=== PATIENT | male | born 1955 | race Caucasian/White ===

== ENCOUNTER 2018-12-17 02:54 | Inpatient (IN) | payer MEDICARE, BC ==
[2018-12-17] MEDS: METHYLPREDNISOLONE 125 MG INJ IV ×2 (03:19→22:53)
[2018-12-17] MEDS: IPRATROPIUM (NEB) 0.5 MG/2.5 ML AMP INH (03:38)
[2018-12-17] MEDS: ALBUTEROL 0.5% (NEB) 2.5 MG/0.5 ML AMP INH (03:38)
[2018-12-17 03:40] LABS: ADD MAN DIFF? NO
[2018-12-17 03:44] LABS: AADO2 Arterial 56.9 mmHg (7.0-24.0); Allen Test ACCEPTAB; Arterial Base Excess 5.6 mmol/L (-3.0-3); Arterial Blood Gas Oxygen Sat 99.1 mmHG (95.0-98.0); Arterial COHb 1.8 % (0.0-3.0); Arterial HCO3 32.4 mmol/L (22.0-26.0); Arterial MetHb 0.3 % (0.0-1.5); Arterial pCO2 56.9 mmhg (35-45); Blood Gas IEPAP 15/5; MODE MASK - BIPAP; Site Right Radial
[2018-12-17 04:01] LABS: ALANINE AMINOTRANSFERASE 20 IU/L (13-69); ALBUMIN 4.3 g/dl (3.3-4.9); ALBUMIN/GLOBULIN RATIO 1.59; ALKALINE PHOSPHATASE 55 IU/L (42-121); ANION GAP 8 (5-13); ASPARTATE AMINO TRANSFERASE 20 IU/L (15-46); BILIRUBIN,INDIRECT 0.3 mg/dl (0-1.1); BILIRUBIN,TOTAL 0.3 mg/dl (0.2-1.3); BLOOD UREA NITROGEN 21 mg/dl (7-20); CALCIUM 9.2 mg/dl (8.4-10.2); CARBON DIOXIDE 32 mmol/L (21-31); CHLORIDE 105 mmol/L (97-110); CREATININE 0.92 mg/dl (0.61-1.24); Estimated GFR > 60 mL/min (>60); GLUCOSE 102 mg/dl (70-220); INR 0.94; POTASSIUM 3.7 mmol/L (3.5-5.1); PROTIME 12.7 Sec (11.9-14.9); SODIUM 145 mmol/L (135-144)
[2018-12-17 04:02] LABS: PARTIAL THROMBOPLASTIN TIME 25.3 Sec (23.0-35.0)
[2018-12-17 04:09] LABS: B-TYPE NATRIURETIC PEPTIDE 102 PG/ML (0-125)
[2018-12-17 04:12] LABS: WHITE BLOOD COUNT 14.7 10^3/ul (4.8-10.8)
[2018-12-17 04:12] LABS: BASOPHIL # 0.1 10^3/ul (0.0-0.1); BASOPHILS % 0.6 % (0.0-2.0); EOSINOPHILS # 0.1 10^3/ul (0.0-0.5); EOSINOPHILS % 0.3 % (0.0-7.0); HEMATOCRIT 43.2 % (42.0-52.0); HEMOGLOBIN 13.6 g/dl (14.0-18.0); LYMPHOCYTES # 2.8 10^3/ul (0.8-2.9); LYMPHOCYTES % 18.7 % (15.0-51.0); MEAN CORPUSCULAR HEMOGLOBIN 30.3 pg (29.0-33.0); MEAN CORPUSCULAR HGB CONC 31.5 g/dl (32.0-37.0); MEAN CORPUSCULAR VOLUME 96.2 fl (82.0-101.0); MEAN PLATELET VOLUME 10.3 fl (7.4-10.4); MONOCYTE # 1.2 10^3/ul (0.3-0.9); MONOCYTES % 7.9 % (0.0-11.0); NEUTROPHIL # 10.4 10^3/ul (1.6-7.5); NEUTROPHILS % 70.8 % (39.0-77.0); PLATELET COUNT 197 10^3/UL (140-415); RED BLOOD COUNT 4.49 10^6/ul (4.70-6.10); RED CELL DISTRIBUTION WIDTH 13.2 % (11.5-14.5)
[2018-12-17 04:14] LABS: TROPONIN-I < 0.012 ng/ml (0.000-0.120)
[2018-12-17 06:16] LABS: LACTIC ACID 1.6 mmol/L (0.5-2.0)
[2018-12-17 07:39] LABS: LACTIC ACID 1.7 mmol/L (0.5-2.0)
[2018-12-17] MEDS ORDERED: NACL 0.9% 3 ML SYG IV (16:00)
[2018-12-17] MEDS ORDERED: ALBUTEROL/IPRATROPIUM (NEB) 3 ML AMP HHN (16:00)
[2018-12-17] MEDS ORDERED: DOCUSATE SODIUM 100 MG CAP PO (16:00)
[2018-12-17] MEDS ORDERED: BISACODYL (EC) 5 MG TAB PO (16:00)
[2018-12-17] MEDS: ENOXAPARIN 30 MG/0.3 ML SYG SC (18:08)
[2018-12-17] MEDS: ALBUTEROL/IPRATROPIUM (NEB) 3 ML AMP HHN (20:17)
[2018-12-17] MEDS: DOCUSATE SODIUM 100 MG CAP PO (20:43)
[2018-12-17] MEDS: BENAZEPRIL 20 MG TAB PO (20:43)
[2018-12-17] MEDS: DILTIAZEM (CD) 120 MG CAP PO (20:44)
[2018-12-17] MEDS: ALPRAZOLAM 1 MG TAB PO (22:54)
[2018-12-18] MEDS: ALBUTEROL/IPRATROPIUM (NEB) 3 ML AMP HHN ×4 (02:21→21:14)
[2018-12-18] MEDS: ALPRAZOLAM 1 MG TAB PO ×2 (05:08→17:59)
[2018-12-18] MEDS: PANTOPRAZOLE (EC) 40 MG TAB PO (05:08)
[2018-12-18] MEDS: HYDROCODONE/APAP (5/325) TAB PO (05:09)
[2018-12-18] MEDS: METHYLPREDNISOLONE 125 MG INJ IV ×3 (05:09→20:36)
[2018-12-18 05:19] LABS: ADD MAN DIFF? NO
[2018-12-18 05:30] LABS: BASOPHILS % 0.2 % (0.0-2.0); HEMATOCRIT 37.8 % (42.0-52.0); HEMOGLOBIN 12.5 g/dl (14.0-18.0); LYMPHOCYTES # 0.8 10^3/ul (0.8-2.9); LYMPHOCYTES % 6.6 % (15.0-51.0); MEAN CORPUSCULAR HEMOGLOBIN 31.2 pg (29.0-33.0); MEAN CORPUSCULAR HGB CONC 33.1 g/dl (32.0-37.0); MEAN CORPUSCULAR VOLUME 94.3 fl (82.0-101.0); MEAN PLATELET VOLUME 10.3 fl (7.4-10.4); MONOCYTE # 0.2 10^3/ul (0.3-0.9); MONOCYTES % 1.4 % (0.0-11.0); NEUTROPHIL # 10.3 10^3/ul (1.6-7.5); NEUTROPHILS % 90.8 % (39.0-77.0); PLATELET COUNT 172 10^3/UL (140-415); RED BLOOD COUNT 4.01 10^6/ul (4.70-6.10); RED CELL DISTRIBUTION WIDTH 13.1 % (11.5-14.5)
[2018-12-18 05:30] LABS: WHITE BLOOD COUNT 11.3 10^3/ul (4.8-10.8)
[2018-12-18 06:21] LABS: ANION GAP 5 (5-13); BLOOD UREA NITROGEN 22 mg/dl (7-20); CARBON DIOXIDE 32 mmol/L (21-31); CHLORIDE 104 mmol/L (97-110); Estimated GFR > 60 mL/min (>60); GLUCOSE 167 mg/dl (70-220); SODIUM 141 mmol/L (135-144)
[2018-12-18] MEDS: DOCUSATE SODIUM 100 MG CAP PO ×2 (08:17→20:32)
[2018-12-18] MEDS: DILTIAZEM (CD) 120 MG CAP PO (08:18)
[2018-12-18] MEDS: BENAZEPRIL 20 MG TAB PO ×2 (08:18→20:32)
[2018-12-18] MEDS: ENOXAPARIN 30 MG/0.3 ML SYG SC (08:24)
[2018-12-18] MEDS ORDERED: PHENELZINE 15 MG PO (09:00)
[2018-12-18] MEDS: LACTULOSE 30ML CUP PO (20:30)
[2018-12-18] MEDS: [UNRECOGNIZED DRUG - REMARK] XX (22:30)
[2018-12-19] MEDS: LORAZEPAM 0.5 MG TAB PO ×2 (00:22→09:37)
[2018-12-19] MEDS: ALBUTEROL/IPRATROPIUM (NEB) 3 ML AMP HHN ×4 (02:43→20:56)
[2018-12-19] MEDS: ALPRAZOLAM 1 MG TAB PO ×3 (03:00→21:49)
[2018-12-19] MEDS: [UNRECOGNIZED DRUG - REMARK] XX (06:30)
[2018-12-19 06:32] LABS: ADD MAN DIFF? NO
[2018-12-19] MEDS: METHYLPREDNISOLONE 125 MG INJ IV ×3 (06:40→21:49)
[2018-12-19] MEDS: PANTOPRAZOLE (EC) 40 MG TAB PO (06:40)
[2018-12-19 06:42] LABS: BASOPHILS % 0.2 % (0.0-2.0); HEMATOCRIT 38.8 % (42.0-52.0); HEMOGLOBIN 12.6 g/dl (14.0-18.0); LYMPHOCYTES # 0.8 10^3/ul (0.8-2.9); LYMPHOCYTES % 6.8 % (15.0-51.0); MEAN CORPUSCULAR HEMOGLOBIN 30.5 pg (29.0-33.0); MEAN CORPUSCULAR HGB CONC 32.5 g/dl (32.0-37.0); MEAN CORPUSCULAR VOLUME 93.9 fl (82.0-101.0); MEAN PLATELET VOLUME 10.3 fl (7.4-10.4); MONOCYTE # 0.3 10^3/ul (0.3-0.9); MONOCYTES % 3.1 % (0.0-11.0); NEUTROPHIL # 9.9 10^3/ul (1.6-7.5); NEUTROPHILS % 88.8 % (39.0-77.0); PLATELET COUNT 179 10^3/UL (140-415); RED BLOOD COUNT 4.13 10^6/ul (4.70-6.10); RED CELL DISTRIBUTION WIDTH 13.1 % (11.5-14.5)
[2018-12-19 06:42] LABS: WHITE BLOOD COUNT 11.1 10^3/ul (4.8-10.8)
[2018-12-19 07:02] LABS: ANION GAP 6 (5-13); BLOOD UREA NITROGEN 23 mg/dl (7-20); CALCIUM 9.1 mg/dl (8.4-10.2); CARBON DIOXIDE 32 mmol/L (21-31); CHLORIDE 101 mmol/L (97-110); CREATININE 0.82 mg/dl (0.61-1.24); Estimated GFR > 60 mL/min (>60); GLUCOSE 157 mg/dl (70-220); SODIUM 139 mmol/L (135-144)
[2018-12-19 07:24] LABS: PROSTATE SPECIFIC ANTIGEN 0.2 ng/ml (0.0-4.0)
[2018-12-19] MEDS: LACTULOSE 30ML CUP PO (08:19)
[2018-12-19] MEDS: DOCUSATE SODIUM 100 MG CAP PO ×2 (08:19→21:49)
[2018-12-19] MEDS: DILTIAZEM (CD) 120 MG CAP PO (08:21)
[2018-12-19] MEDS: BENAZEPRIL 20 MG TAB PO ×2 (08:22→21:49)
[2018-12-19] MEDS: ENOXAPARIN 30 MG/0.3 ML SYG SC (08:26)
[2018-12-19] MEDS ORDERED: LEVOFLOXACIN 500MG/D5W (PMX) 100 ML IVPB (12:30)
[2018-12-19] MEDS: TRIMETHOPRIM/SULFAMETHOX (DS) TAB PO ×2 (14:01→21:49)
[2018-12-19] MEDS: AZITHROMYCIN 250 MG in SOD CHLORIDE 0.9% 250 ML IVPB (18:42)
[2018-12-20] MEDS: ALBUTEROL/IPRATROPIUM (NEB) 3 ML AMP HHN ×3 (02:33→19:53)
[2018-12-20] MEDS: LORAZEPAM 0.5 MG TAB PO ×3 (02:57→23:49)
[2018-12-20] MEDS: PANTOPRAZOLE (EC) 40 MG TAB PO (06:35)
[2018-12-20] MEDS: METHYLPREDNISOLONE 125 MG INJ IV ×2 (08:16→20:46)
[2018-12-20] MEDS: LACTULOSE 30ML CUP PO (08:16)
[2018-12-20] MEDS: DILTIAZEM (CD) 120 MG CAP PO (08:17)
[2018-12-20] MEDS: TRIMETHOPRIM/SULFAMETHOX (DS) TAB PO ×2 (08:17→20:47)
[2018-12-20] MEDS: DOCUSATE SODIUM 100 MG CAP PO ×2 (08:17→20:47)
[2018-12-20] MEDS: BENAZEPRIL 20 MG TAB PO ×2 (08:17→20:48)
[2018-12-20] MEDS: ENOXAPARIN 30 MG/0.3 ML SYG SC (08:18)
[2018-12-20] MEDS: ALPRAZOLAM 1 MG TAB PO ×2 (08:38→17:30)
[2018-12-20] MEDS: AZITHROMYCIN 250 MG in SOD CHLORIDE 0.9% 250 ML IVPB (17:07)
[2018-12-21] MEDS: ALBUTEROL/IPRATROPIUM (NEB) 3 ML AMP HHN ×4 (01:38→20:28)
[2018-12-21] MEDS: ALPRAZOLAM 1 MG TAB PO ×3 (01:41→18:37)
[2018-12-21] MEDS: PANTOPRAZOLE (EC) 40 MG TAB PO (05:19)
[2018-12-21] MEDS: LACTULOSE 30ML CUP PO (08:02)
[2018-12-21] MEDS: LORAZEPAM 0.5 MG TAB PO ×2 (08:02→16:22)
[2018-12-21] MEDS: TRIMETHOPRIM/SULFAMETHOX (DS) TAB PO (08:03)
[2018-12-21] MEDS: METHYLPREDNISOLONE 125 MG INJ IV ×2 (08:03→20:21)
[2018-12-21] MEDS: DILTIAZEM (CD) 120 MG CAP PO (08:03)
[2018-12-21] MEDS: BENAZEPRIL 20 MG TAB PO ×2 (08:03→20:21)
[2018-12-21] MEDS: DOCUSATE SODIUM 100 MG CAP PO ×2 (09:17→20:20)
[2018-12-21] MEDS: NICOTINE (21 MG/24 HR) PATCH TRANSDERM (09:17)
[2018-12-21] MEDS: ENOXAPARIN 30 MG/0.3 ML SYG SC (09:54)
[2018-12-21] MEDS: AZITHROMYCIN 250 MG in SOD CHLORIDE 0.9% 250 ML IVPB (16:09)
[2018-12-22] MEDS: LORAZEPAM 0.5 MG TAB PO ×3 (00:27→23:08)
[2018-12-22] MEDS: ALBUTEROL/IPRATROPIUM (NEB) 3 ML AMP HHN ×4 (02:16→20:15)
[2018-12-22] MEDS: ALPRAZOLAM 1 MG TAB PO ×3 (02:53→20:09)
[2018-12-22] MEDS: PANTOPRAZOLE (EC) 40 MG TAB PO (05:16)
[2018-12-22 05:38] LABS: ADD MAN DIFF? NO
[2018-12-22 05:45] LABS: WHITE BLOOD COUNT 9.8 10^3/ul (4.8-10.8)
[2018-12-22 05:45] LABS: BASOPHILS % 0.1 % (0.0-2.0); HEMOGLOBIN 13.3 g/dl (14.0-18.0); LYMPHOCYTES # 0.8 10^3/ul (0.8-2.9); LYMPHOCYTES % 8.2 % (15.0-51.0); MEAN CORPUSCULAR HEMOGLOBIN 30.5 pg (29.0-33.0); MEAN CORPUSCULAR HGB CONC 33.3 g/dl (32.0-37.0); MEAN CORPUSCULAR VOLUME 91.7 fl (82.0-101.0); MEAN PLATELET VOLUME 10.4 fl (7.4-10.4); MONOCYTE # 0.4 10^3/ul (0.3-0.9); MONOCYTES % 3.7 % (0.0-11.0); NEUTROPHIL # 8.5 10^3/ul (1.6-7.5); NEUTROPHILS % 86.6 % (39.0-77.0); PLATELET COUNT 166 10^3/UL (140-415); RED BLOOD COUNT 4.36 10^6/ul (4.70-6.10); RED CELL DISTRIBUTION WIDTH 13.2 % (11.5-14.5)
[2018-12-22 06:40] LABS: MAGNESIUM 2.4 mg/dl (1.7-2.5)
[2018-12-22 06:47] LABS: ANION GAP 8 (5-13); BLOOD UREA NITROGEN 21 mg/dl (7-20); CALCIUM 8.7 mg/dl (8.4-10.2); CARBON DIOXIDE 29 mmol/L (21-31); CHLORIDE 99 mmol/L (97-110); CREATININE 0.79 mg/dl (0.61-1.24); Estimated GFR > 60 mL/min (>60); GLUCOSE 162 mg/dl (70-220); POTASSIUM 4.3 mmol/L (3.5-5.1); SODIUM 136 mmol/L (135-144)
[2018-12-22] MEDS: NICOTINE (21 MG/24 HR) PATCH TRANSDERM (08:17)
[2018-12-22] MEDS: LACTULOSE 30ML CUP PO (08:17)
[2018-12-22] MEDS: DILTIAZEM (CD) 120 MG CAP PO (08:18)
[2018-12-22] MEDS: DOCUSATE SODIUM 100 MG CAP PO ×2 (08:18→20:10)
[2018-12-22] MEDS: BENAZEPRIL 20 MG TAB PO ×2 (08:18→20:09)
[2018-12-22] MEDS: METHYLPREDNISOLONE 125 MG INJ IV ×2 (08:19→20:10)
[2018-12-22] MEDS: ONDANSETRON 4 MG INJ IV (08:53)
[2018-12-22] MEDS: ENOXAPARIN 30 MG/0.3 ML SYG SC (08:53)
[2018-12-22] MEDS: AZITHROMYCIN 250 MG TAB PO (15:54)
[2018-12-23] MEDS: ALBUTEROL/IPRATROPIUM (NEB) 3 ML AMP HHN ×4 (01:39→19:55)
[2018-12-23] MEDS: ALPRAZOLAM 1 MG TAB PO ×2 (03:48→16:32)
[2018-12-23] MEDS: PANTOPRAZOLE (EC) 40 MG TAB PO (05:50)
[2018-12-23] MEDS: DOCUSATE SODIUM 100 MG CAP PO ×2 (09:49→23:04)
[2018-12-23] MEDS: LACTULOSE 30ML CUP PO (09:49)
[2018-12-23] MEDS: DILTIAZEM (CD) 120 MG CAP PO (09:50)
[2018-12-23] MEDS: BENAZEPRIL 20 MG TAB PO ×2 (09:50→23:04)
[2018-12-23] MEDS: AZITHROMYCIN 250 MG TAB PO (09:50)
[2018-12-23] MEDS: NICOTINE (21 MG/24 HR) PATCH TRANSDERM (09:58)
[2018-12-23] MEDS: ENOXAPARIN 30 MG/0.3 ML SYG SC (10:17)
[2018-12-23] MEDS: LORAZEPAM 0.5 MG TAB PO ×2 (11:07→23:03)
[2018-12-23] MEDS: METHYLPREDNISOLONE 125 MG INJ IV ×2 (11:07→23:04)
[2018-12-23] MEDS: ACETAMINOPHEN 325 MG TAB PO (17:43)
[2018-12-23] MEDS: IOHEXOL 14.3 MG(I)/ML (ADULT) BTL PO (20:33)
[2018-12-24] MEDS: ALBUTEROL/IPRATROPIUM (NEB) 3 ML AMP HHN ×3 (02:02→13:24)
[2018-12-24] MEDS: ALPRAZOLAM 1 MG TAB PO ×2 (02:24→11:06)
[2018-12-24] MEDS: PANTOPRAZOLE (EC) 40 MG TAB PO (06:10)
[2018-12-24] MEDS: METHYLPREDNISOLONE 40 MG INJ IV (08:56)
[2018-12-24] MEDS: LACTULOSE 30ML CUP PO (08:58)
[2018-12-24] MEDS: DOCUSATE SODIUM 100 MG CAP PO (09:00)
[2018-12-24] MEDS: BENAZEPRIL 20 MG TAB PO (09:00)
[2018-12-24] MEDS: AZITHROMYCIN 250 MG TAB PO (09:00)
[2018-12-24] MEDS: DILTIAZEM (CD) 120 MG CAP PO (09:00)
[2018-12-24] MEDS: NICOTINE (21 MG/24 HR) PATCH TRANSDERM (09:03)
[2018-12-24] MEDS: LORAZEPAM 0.5 MG TAB PO (09:10)
[2018-12-24] MEDS: ENOXAPARIN 30 MG/0.3 ML SYG SC (09:15)
== END 2018-12-24 17:39 | disposition home or self-care (01) | DRG 190 ==
LOC: E/R 02:54 → 6WM 13:15
PROC: 5A09357 Assistance with Respiratory Ventilation, Less than 24 Consecutive Hours, Continuous Positive Airway Pressure (ICD-10-PCS; principal; 2018-12-17)
PROC: 4A033R1 Measurement of Arterial Saturation, Peripheral, Percutaneous Approach (ICD-10-PCS; 2018-12-17)
DX: J44.1 Chronic obstructive pulmonary disease with (acute) exacerbation (principal); J96.01 Acute respiratory failure with hypoxia; J96.02 Acute respiratory failure with hypercapnia; F32.9 Major depressive disorder, single episode, unspecified; Z68.32 Body mass index [BMI] 32.0-32.9, adult; F41.9 Anxiety disorder, unspecified; I10 Essential (primary) hypertension; E66.9 Obesity, unspecified; F17.210 Nicotine dependence, cigarettes, uncomplicated
CPT/HCPCS: 36600; 71045; 74176; 80048; 80053; 82803; 83605; 83735; 83880; 84153; 84154; 84484; 85025; 85610; 85730; 93005; 94640; 94644; 94660; 94664; 97161

== ENCOUNTER 2019-03-01 15:50 | Inpatient (IN) | payer MEDICARE, BC ==
[2019-03-01] MEDS: HYDROmorphONE 0.5 MG/0.5 ML SYG IV ×3 (16:27→21:04)
[2019-03-01] MEDS: ONDANSETRON 4 MG INJ IV (16:27)
[2019-03-01 16:31] LABS: WHITE BLOOD COUNT 17.9 10^3/ul (4.8-10.8)
[2019-03-01 16:31] LABS: ABNORMAL IP MESSAGE 1; HEMATOCRIT 42.5 % (42.0-52.0); HEMOGLOBIN 13.8 g/dl (14.0-18.0); MEAN CORPUSCULAR HEMOGLOBIN 30.9 pg (29.0-33.0); MEAN CORPUSCULAR HGB CONC 32.5 g/dl (32.0-37.0); MEAN CORPUSCULAR VOLUME 95.1 fl (82.0-101.0); MEAN PLATELET VOLUME 10.6 fl (7.4-10.4); PLATELET COUNT 151 10^3/UL (140-415); POSITIVE DIFF @See below; RED BLOOD COUNT 4.47 10^6/ul (4.70-6.10); RED CELL DISTRIBUTION WIDTH 13.8 % (11.5-14.5)
[2019-03-01 16:37] LABS: ADD MAN DIFF? YES
[2019-03-01 16:50] LABS: ALANINE AMINOTRANSFERASE 43 IU/L (13-69); ALBUMIN 3.7 g/dl (3.3-4.9); ALBUMIN/GLOBULIN RATIO 1.48; ALKALINE PHOSPHATASE 70 IU/L (42-121); ANION GAP 6 (5-13); ASPARTATE AMINO TRANSFERASE 27 IU/L (15-46); BILIRUBIN,INDIRECT 0.6 mg/dl (0-1.1); BILIRUBIN,TOTAL 0.6 mg/dl (0.2-1.3); BLOOD UREA NITROGEN 27 mg/dl (7-20); CALCIUM 8.8 mg/dl (8.4-10.2); CARBON DIOXIDE 33 mmol/L (21-31); CHLORIDE 100 mmol/L (97-110); CREATININE 0.89 mg/dl (0.61-1.24); Estimated GFR > 60 mL/min (>60); GLUCOSE 152 mg/dl (70-220); LIPASE 35 U/L (23-300); POTASSIUM 3.8 mmol/L (3.5-5.1); SODIUM 139 mmol/L (135-144); TOTAL PROTEIN 6.2 g/dl (6.1-8.1)
[2019-03-01 17:21] LABS: URINE PH (Dip) POC 6.5 (5.0-8.5)
[2019-03-01 17:21] LABS: URINE BLOOD (Dip) POC Trace-intact (NEGATIVE); URINE GLUCOSE (Dip) POC Negative (NEGATIVE); URINE KETONES (Dip) POC Negative (NEGATIVE); URINE LEUKOCYTE EST (Dip) POC Negative (NEGATIVE); URINE NITRITE (Dip) POC Negative (NEGATIVE); URINE TOTAL PROTEIN POC 1+ (NEGATIVE)
[2019-03-01 17:38] LABS: ANISOCYTOSIS 1+ (0-0); BAND NEUTROPHILS #M 0.7 10^3/ul (0.0-0.6); BAND NEUTROPHILS % (M) 4 % (0-4); LYMPHOCYTES #M 0.3 10^3/ul (0.8-2.9); LYMPHOCYTES % (M) 2 % (15-51); MICROCYTOSIS 1+ (0-0); MONOCYTE #M 0.8 10^3/ul (0.3-0.9); MONOCYTES % (M) 5 % (0-11); PLATELET ESTIMATE NORMAL; POLYCHROMASIA 1+ (0-0); REACTIVE LYMPHOCYTES #M 1.6 10^3/ul (0.0-0.0); REACTIVE LYMPHOCYTES% (M) 9 % (0-0); SEG NEUT #M 14.4 10^3/ul (1.6-7.5); SEGMENTED NEUTROPHILS (M) % 80 % (39-77); SMUDGE%M 4 % (0-0)
[2019-03-01] MEDS: PIPER-TAZO 3.375 GM IV (PMX) 100 ML IVPB (21:04)
[2019-03-01] MEDS: LIDOCAINE 2% VISC 15 ML CUP PO (22:00)
[2019-03-01] MEDS: HYDROmorphONE 2 MG/ML SYG IV (23:51)
[2019-03-02] MEDS: D5-NS + KCL 20 MEQ 1,000 ML IV ×3 (01:19→16:24)
[2019-03-02] MEDS: FAMOTIDINE 20 MG INJ IV ×3 (01:35→20:31)
[2019-03-02] MEDS: HYDROmorphONE 2 MG/ML SYG IV ×4 (06:23→20:31)
[2019-03-02 06:48] LABS: ADD MAN DIFF? NO
[2019-03-02 06:51] LABS: WHITE BLOOD COUNT 17.2 10^3/ul (4.8-10.8)
[2019-03-02 06:51] LABS: BASOPHIL # 0.1 10^3/ul (0.0-0.1); BASOPHILS % 0.4 % (0.0-2.0); EOSINOPHILS % 0.2 % (0.0-7.0); HEMATOCRIT 38.7 % (42.0-52.0); HEMOGLOBIN 12.2 g/dl (14.0-18.0); LYMPHOCYTES # 1.7 10^3/ul (0.8-2.9); LYMPHOCYTES % 9.9 % (15.0-51.0); MEAN CORPUSCULAR HGB CONC 31.5 g/dl (32.0-37.0); MEAN CORPUSCULAR VOLUME 98.5 fl (82.0-101.0); MEAN PLATELET VOLUME 10.7 fl (7.4-10.4); MONOCYTE # 1.4 10^3/ul (0.3-0.9); MONOCYTES % 7.9 % (0.0-11.0); NEUTROPHIL # 13.7 10^3/ul (1.6-7.5); NEUTROPHILS % 79.6 % (39.0-77.0); PLATELET COUNT 122 10^3/UL (140-415); RED BLOOD COUNT 3.93 10^6/ul (4.70-6.10); RED CELL DISTRIBUTION WIDTH 13.5 % (11.5-14.5)
[2019-03-02 07:11] LABS: ANION GAP 4 (5-13); BLOOD UREA NITROGEN 23 mg/dl (7-20); CALCIUM 8.2 mg/dl (8.4-10.2); CARBON DIOXIDE 36 mmol/L (21-31); CHLORIDE 101 mmol/L (97-110); CREATININE 0.78 mg/dl (0.61-1.24); Estimated GFR > 60 mL/min (>60); GLUCOSE 137 mg/dl (70-220); POTASSIUM 3.8 mmol/L (3.5-5.1); SODIUM 141 mmol/L (135-144)
[2019-03-02 07:36] LABS: MAGNESIUM 2.2 mg/dl (1.7-2.5)
[2019-03-02] MEDS ORDERED: PANTOPRAZOLE 40 MG INJ IV (09:00)
[2019-03-02] MEDS: LEVALBUTEROL (NEB) 0.63 MG/3 ML AMP HHN ×2 (15:48→20:07)
[2019-03-03] MEDS: LEVALBUTEROL (NEB) 0.63 MG/3 ML AMP HHN ×4 (01:31→19:25)
[2019-03-03] MEDS: HYDROmorphONE 2 MG/ML SYG IV ×6 (02:22→22:06)
[2019-03-03] MEDS: D5-NS + KCL 20 MEQ 1,000 ML IV ×3 (04:42→17:27)
[2019-03-03 07:04] LABS: ADD MAN DIFF? NO
[2019-03-03 07:09] LABS: BASOPHILS % 0.2 % (0.0-2.0); EOSINOPHILS # 0.1 10^3/ul (0.0-0.5); EOSINOPHILS % 0.3 % (0.0-7.0); HEMATOCRIT 37.3 % (42.0-52.0); LYMPHOCYTES # 1.4 10^3/ul (0.8-2.9); LYMPHOCYTES % 8.4 % (15.0-51.0); MEAN CORPUSCULAR HEMOGLOBIN 31.5 pg (29.0-33.0); MEAN CORPUSCULAR HGB CONC 32.2 g/dl (32.0-37.0); MEAN CORPUSCULAR VOLUME 97.9 fl (82.0-101.0); MEAN PLATELET VOLUME 10.9 fl (7.4-10.4); MONOCYTE # 1.2 10^3/ul (0.3-0.9); MONOCYTES % 7.2 % (0.0-11.0); NEUTROPHIL # 13.2 10^3/ul (1.6-7.5); NEUTROPHILS % 82.3 % (39.0-77.0); PLATELET COUNT 113 10^3/UL (140-415); POSITIVE DIFF @See below; RED BLOOD COUNT 3.81 10^6/ul (4.70-6.10); RED CELL DISTRIBUTION WIDTH 13.5 % (11.5-14.5)
[2019-03-03 07:32] LABS: ANION GAP 8 (5-13); BLOOD UREA NITROGEN 19 mg/dl (7-20); CALCIUM 8.1 mg/dl (8.4-10.2); CARBON DIOXIDE 37 mmol/L (21-31); CHLORIDE 98 mmol/L (97-110); CREATININE 0.67 mg/dl (0.61-1.24); Estimated GFR > 60 mL/min (>60); GLUCOSE 116 mg/dl (70-220); POTASSIUM 3.8 mmol/L (3.5-5.1); SODIUM 143 mmol/L (135-144)
[2019-03-03] MEDS ORDERED: NITROGLYCERIN (SL) 0.4 MG TAB (07:41)
[2019-03-03] MEDS: FAMOTIDINE 20 MG INJ IV ×2 (09:20→21:43)
[2019-03-03] MEDS: METOPROLOL 5 MG INJ IV (09:20)
[2019-03-03] MEDS: NITROGLYCERIN 2% 1 GM OINT PKT TD ×3 (09:21→21:45)
[2019-03-03 10:27] LABS: TROPONIN-I 0.016 ng/ml (0.000-0.120)
[2019-03-03] MEDS: ASPIRIN 300 MG SUPP PR ×2 (10:30→13:18)
[2019-03-03] MEDS: HYDROmorphONE 1 MG/ML SYG IV (13:29)
[2019-03-03] MEDS: LORAZEPAM 2 MG INJ IV (14:21)
[2019-03-03 15:33] LABS: TROPONIN-I 0.017 ng/ml (0.000-0.120)
[2019-03-03] MEDS: NICOTINE (14 MG/24 HR) PATCH TRANSDERM (17:28)
[2019-03-03] MEDS: NA PHOSPHATE/BIPHOS 133 ML ENEMA PR (18:23)
[2019-03-04 00:18] LABS: TROPONIN-I 0.016 ng/ml (0.000-0.120)
[2019-03-04] MEDS: LEVALBUTEROL (NEB) 0.63 MG/3 ML AMP HHN ×5 (01:31→20:22)
[2019-03-04] MEDS: D5-NS + KCL 20 MEQ 1,000 ML IV ×4 (02:32→21:11)
[2019-03-04] MEDS: HYDROmorphONE 2 MG/ML SYG IV ×4 (04:04→19:50)
[2019-03-04 06:14] LABS: ADD MAN DIFF? NO
[2019-03-04 06:18] LABS: WHITE BLOOD COUNT 14.6 10^3/ul (4.8-10.8)
[2019-03-04 06:18] LABS: BASOPHILS % 0.1 % (0.0-2.0); EOSINOPHILS # 0.1 10^3/ul (0.0-0.5); EOSINOPHILS % 0.3 % (0.0-7.0); HEMATOCRIT 35.4 % (42.0-52.0); HEMOGLOBIN 11.3 g/dl (14.0-18.0); LYMPHOCYTES # 1.1 10^3/ul (0.8-2.9); LYMPHOCYTES % 7.5 % (15.0-51.0); MEAN CORPUSCULAR HEMOGLOBIN 30.8 pg (29.0-33.0); MEAN CORPUSCULAR HGB CONC 31.9 g/dl (32.0-37.0); MEAN CORPUSCULAR VOLUME 96.5 fl (82.0-101.0); MEAN PLATELET VOLUME 10.6 fl (7.4-10.4); MONOCYTE # 1.2 10^3/ul (0.3-0.9); MONOCYTES % 8.4 % (0.0-11.0); NEUTROPHILS % 82.2 % (39.0-77.0); PLATELET COUNT 113 10^3/UL (140-415); RED BLOOD COUNT 3.67 10^6/ul (4.70-6.10); RED CELL DISTRIBUTION WIDTH 13.5 % (11.5-14.5)
[2019-03-04] MEDS: NITROGLYCERIN (SL) 0.4 MG TAB SL ×3 (06:23→13:22)
[2019-03-04] MEDS: HYDROmorphONE 1 MG/ML SYG IV (06:42)
[2019-03-04 06:59] LABS: ANION GAP 5 (5-13); BLOOD UREA NITROGEN 13 mg/dl (7-20); CARBON DIOXIDE 34 mmol/L (21-31); CHLORIDE 100 mmol/L (97-110); CREATININE 0.58 mg/dl (0.61-1.24); Estimated GFR > 60 mL/min (>60); GLUCOSE 146 mg/dl (70-220); POTASSIUM 3.7 mmol/L (3.5-5.1); SODIUM 139 mmol/L (135-144)
[2019-03-04] MEDS: NICOTINE (14 MG/24 HR) PATCH TRANSDERM (08:40)
[2019-03-04] MEDS: NITROGLYCERIN 2% 1 GM OINT PKT TD ×3 (08:41→21:11)
[2019-03-04] MEDS: ASPIRIN 300 MG SUPP PR (08:42)
[2019-03-04] MEDS: FAMOTIDINE 20 MG INJ IV ×2 (08:42→21:11)
[2019-03-04] MEDS: hydrALAzine 20 MG INJ IV (12:46)
[2019-03-04] MEDS: LORAZEPAM 2 MG INJ IV ×3 (13:30→21:41)
[2019-03-04] MEDS ORDERED: FUROSEMIDE 20 MG INJ IV (14:30)
[2019-03-04] MEDS: FUROSEMIDE 20 MG INJ IV (14:31)
[2019-03-04] MEDS: METHYLPREDNISOLONE 125 MG INJ IV (14:31)
[2019-03-04] MEDS ORDERED: VANCOMYCIN IV PER PHARMACY XX (15:00)
[2019-03-04 15:38] LABS: ADD MAN DIFF? NO
[2019-03-04 15:40] LABS: WHITE BLOOD COUNT 16.4 10^3/ul (4.8-10.8)
[2019-03-04 15:40] LABS: BASOPHILS % 0.2 % (0.0-2.0); EOSINOPHILS # 0.1 10^3/ul (0.0-0.5); EOSINOPHILS % 0.3 % (0.0-7.0); HEMOGLOBIN 12.3 g/dl (14.0-18.0); LYMPHOCYTES # 0.8 10^3/ul (0.8-2.9); LYMPHOCYTES % 4.9 % (15.0-51.0); MEAN CORPUSCULAR HEMOGLOBIN 31.3 pg (29.0-33.0); MEAN CORPUSCULAR HGB CONC 32.4 g/dl (32.0-37.0); MEAN CORPUSCULAR VOLUME 96.7 fl (82.0-101.0); MEAN PLATELET VOLUME 10.1 fl (7.4-10.4); NEUTROPHIL # 14.3 10^3/ul (1.6-7.5); NEUTROPHILS % 87.4 % (39.0-77.0); PLATELET COUNT 119 10^3/UL (140-415); RED BLOOD COUNT 3.93 10^6/ul (4.70-6.10); RED CELL DISTRIBUTION WIDTH 13.3 % (11.5-14.5)
[2019-03-04] MEDS: MEROPENEM 500MG/50 ML (PMX) 50 ML IVPB ×2 (15:51→21:11)
[2019-03-04 15:57] LABS: ALANINE AMINOTRANSFERASE 31 IU/L (13-69); ALBUMIN 3.6 g/dl (3.3-4.9); ALBUMIN/GLOBULIN RATIO 1.33; ALKALINE PHOSPHATASE 78 IU/L (42-121); ANION GAP 4 (5-13); ASPARTATE AMINO TRANSFERASE 22 IU/L (15-46); BLOOD UREA NITROGEN 10 mg/dl (7-20); CALCIUM 8.6 mg/dl (8.4-10.2); CARBON DIOXIDE 35 mmol/L (21-31); CHLORIDE 97 mmol/L (97-110); CREATININE 0.65 mg/dl (0.61-1.24); Estimated GFR > 60 mL/min (>60); GLUCOSE 149 mg/dl (70-220); POTASSIUM 3.7 mmol/L (3.5-5.1); SODIUM 136 mmol/L (135-144); TOTAL PROTEIN 6.3 g/dl (6.1-8.1)
[2019-03-04] MEDS: VANCOMYCIN HCL 2 GM in SOD CHLORIDE 0.9% 500 ML IVPB (17:39)
[2019-03-04] MEDS: FLUCONAZOLE 200 MG (PMX) 100 ML IVPB (21:10)
[2019-03-04 22:07] LABS: TROPONIN-I < 0.012 ng/ml (0.000-0.120)
[2019-03-04] MEDS: NYSTATIN SUSP 5 ML CUP PO (22:47)
[2019-03-05] MEDS: LEVALBUTEROL (NEB) 0.63 MG/3 ML AMP HHN ×3 (01:47→11:20)
[2019-03-05 02:17] LABS: TROPONIN-I 0.013 ng/ml (0.000-0.120)
[2019-03-05] MEDS: LORAZEPAM 2 MG INJ IV (05:02)
[2019-03-05] MEDS: VANCOMYCIN HCL 1.5 GM in SOD CHLORIDE 0.9% 250 ML IVPB ×2 (05:07→17:23)
[2019-03-05] MEDS: NYSTATIN SUSP 5 ML CUP PO ×3 (06:00→22:33)
[2019-03-05 06:03] LABS: ADD MAN DIFF? NO
[2019-03-05 06:08] LABS: WHITE BLOOD COUNT 11.4 10^3/ul (4.8-10.8)
[2019-03-05 06:08] LABS: ABNORMAL IP MESSAGE 1; BASOPHILS % 0.3 % (0.0-2.0); HEMATOCRIT 35.2 % (42.0-52.0); HEMOGLOBIN 11.6 g/dl (14.0-18.0); LYMPHOCYTES # 0.6 10^3/ul (0.8-2.9); LYMPHOCYTES % 5.1 % (15.0-51.0); MEAN CORPUSCULAR VOLUME 94.1 fl (82.0-101.0); MEAN PLATELET VOLUME 10.4 fl (7.4-10.4); MONOCYTE # 0.9 10^3/ul (0.3-0.9); MONOCYTES % 7.9 % (0.0-11.0); NEUTROPHIL # 9.7 10^3/ul (1.6-7.5); NEUTROPHILS % 85.3 % (39.0-77.0); PLATELET COUNT 119 10^3/UL (140-415); POSITIVE DIFF @See below; RED BLOOD COUNT 3.74 10^6/ul (4.70-6.10); RED CELL DISTRIBUTION WIDTH 13.1 % (11.5-14.5)
[2019-03-05 06:52] LABS: ANION GAP 7 (5-13); BLOOD UREA NITROGEN 18 mg/dl (7-20); CALCIUM 8.7 mg/dl (8.4-10.2); CARBON DIOXIDE 28 mmol/L (21-31); CHLORIDE 103 mmol/L (97-110); CREATININE 0.59 mg/dl (0.61-1.24); Estimated GFR > 60 mL/min (>60); GLUCOSE 156 mg/dl (70-220); POTASSIUM 3.7 mmol/L (3.5-5.1); SODIUM 138 mmol/L (135-144)
[2019-03-05 06:52] LABS: LACTIC ACID 1.6 mmol/L (0.5-2.0)
[2019-03-05 07:08] LABS: TROPONIN-I < 0.012 ng/ml (0.000-0.120)
[2019-03-05 07:22] LABS: PROCALCITONIN 0.08 ng/mL (0.00-0.10)
[2019-03-05 07:35] LABS: HIV 1&2 ANTIBODY NEGATIVE (NEGATIVE)
[2019-03-05] MEDS: ASPIRIN 300 MG SUPP PR (09:05)
[2019-03-05] MEDS: hydrALAzine 20 MG INJ IV (09:05)
[2019-03-05] MEDS: NICOTINE (14 MG/24 HR) PATCH TRANSDERM (09:06)
[2019-03-05] MEDS: FAMOTIDINE 20 MG INJ IV (09:06)
[2019-03-05] MEDS: NITROGLYCERIN 2% 1 GM OINT PKT TD ×2 (09:06→13:49)
[2019-03-05] MEDS: MEROPENEM 500MG/50 ML (PMX) 50 ML IVPB ×2 (09:06→20:58)
[2019-03-05] MEDS: METHYLNALTREXONE 12 MG/0.6 ML VIAL SC (09:07)
[2019-03-05] MEDS: HYDROmorphONE 2 MG/ML SYG IV ×2 (17:24→21:01)
[2019-03-05] MEDS: METOPROLOL 25 MG TAB PO (21:02)
[2019-03-05] MEDS: FLUCONAZOLE 200 MG (PMX) 100 ML IVPB (21:48)
[2019-03-06] MEDS: HYDROmorphONE 2 MG/ML SYG IV ×7 (00:37→22:30)
[2019-03-06 04:50] LABS: ADD MAN DIFF? NO
[2019-03-06 05:01] LABS: BASOPHILS % 0.2 % (0.0-2.0); EOSINOPHILS # 0.1 10^3/ul (0.0-0.5); EOSINOPHILS % 0.5 % (0.0-7.0); HEMATOCRIT 35.1 % (42.0-52.0); HEMOGLOBIN 11.4 g/dl (14.0-18.0); LYMPHOCYTES # 1.3 10^3/ul (0.8-2.9); LYMPHOCYTES % 8.2 % (15.0-51.0); MEAN CORPUSCULAR HGB CONC 32.5 g/dl (32.0-37.0); MEAN CORPUSCULAR VOLUME 95.4 fl (82.0-101.0); MEAN PLATELET VOLUME 10.6 fl (7.4-10.4); MONOCYTE # 1.1 10^3/ul (0.3-0.9); MONOCYTES % 7.2 % (0.0-11.0); NEUTROPHIL # 12.8 10^3/ul (1.6-7.5); NEUTROPHILS % 82.7 % (39.0-77.0); PLATELET COUNT 148 10^3/UL (140-415); RED BLOOD COUNT 3.68 10^6/ul (4.70-6.10); RED CELL DISTRIBUTION WIDTH 13.6 % (11.5-14.5)
[2019-03-06 05:01] LABS: WHITE BLOOD COUNT 15.5 10^3/ul (4.8-10.8)
[2019-03-06 06:11] LABS: VANCOMYCIN,TROUGH 15.1 ug/ml (10.0-20.0)
[2019-03-06 06:19] LABS: ANION GAP 6 (5-13); BLOOD UREA NITROGEN 22 mg/dl (7-20); CALCIUM 8.7 mg/dl (8.4-10.2); CARBON DIOXIDE 34 mmol/L (21-31); CHLORIDE 98 mmol/L (97-110); CREATININE 0.73 mg/dl (0.61-1.24); Estimated GFR > 60 mL/min (>60); GLUCOSE 113 mg/dl (70-220); POTASSIUM 3.9 mmol/L (3.5-5.1); SODIUM 138 mmol/L (135-144)
[2019-03-06] MEDS: NYSTATIN SUSP 5 ML CUP PO ×3 (07:41→21:00)
[2019-03-06] MEDS: PANTOPRAZOLE (EC) 40 MG TAB PO (07:42)
[2019-03-06] MEDS: VANCOMYCIN HCL 1.5 GM in SOD CHLORIDE 0.9% 250 ML IVPB ×2 (07:42→16:43)
[2019-03-06] MEDS: ASPIRIN (EC) 81 MG TAB PO (09:11)
[2019-03-06] MEDS: METOPROLOL 25 MG TAB PO ×2 (09:12→20:51)
[2019-03-06] MEDS: METHYLNALTREXONE 12 MG/0.6 ML VIAL SC (09:12)
[2019-03-06] MEDS: MEROPENEM 500MG/50 ML (PMX) 50 ML IVPB ×2 (09:14→20:50)
[2019-03-06] MEDS: NICOTINE (14 MG/24 HR) PATCH TRANSDERM (09:17)
[2019-03-06] MEDS: FLUCONAZOLE 200 MG (PMX) 100 ML IVPB (20:50)
[2019-03-06] MEDS: IPRATROPIUM (NEB) 0.5 MG/2.5 ML AMP HHN (22:06)
[2019-03-07] MEDS: HYDROmorphONE 2 MG/ML SYG IV ×6 (01:33→22:59)
[2019-03-07] MEDS: VANCOMYCIN HCL 1.5 GM in SOD CHLORIDE 0.9% 250 ML IVPB ×2 (05:06→16:21)
[2019-03-07] MEDS: PANTOPRAZOLE (EC) 40 MG TAB PO (05:29)
[2019-03-07] MEDS: NYSTATIN SUSP 5 ML CUP PO ×3 (05:29→21:18)
[2019-03-07] MEDS: IOHEXOL 300MG/ML 150 ML BTL ×2 (08:56)
[2019-03-07] MEDS: ASPIRIN (EC) 81 MG TAB PO (09:00)
[2019-03-07] MEDS: METOPROLOL 25 MG TAB PO ×2 (09:00→20:00)
[2019-03-07] MEDS: MEROPENEM 500MG/50 ML (PMX) 50 ML IVPB ×2 (09:00→20:00)
[2019-03-07] MEDS: NICOTINE (14 MG/24 HR) PATCH TRANSDERM (09:01)
[2019-03-07 09:44] LABS: PROCALCITONIN 0.05 ng/mL (0.00-0.10)
[2019-03-07] MEDS: METHYLNALTREXONE 12 MG/0.6 ML VIAL SC (10:18)
[2019-03-07] MEDS: FLUCONAZOLE 200 MG (PMX) 100 ML IVPB (21:17)
[2019-03-07] MEDS: IPRATROPIUM (NEB) 0.5 MG/2.5 ML AMP HHN (21:58)
[2019-03-07] MEDS: ALPRAZOLAM 1 MG TAB PO (22:35)
[2019-03-08] MEDS: HYDROmorphONE 2 MG/ML SYG IV ×7 (02:03→23:27)
[2019-03-08 04:35] LABS: CREATININE 0.71 mg/dl (0.61-1.24)
[2019-03-08 04:35] LABS: BLOOD UREA NITROGEN 12 mg/dl (7-20)
[2019-03-08 04:40] LABS: VANCOMYCIN,TROUGH 11.1 ug/ml (10.0-20.0)
[2019-03-08] MEDS: VANCOMYCIN HCL 1.5 GM in SOD CHLORIDE 0.9% 250 ML IVPB (05:01)
[2019-03-08] MEDS: NYSTATIN SUSP 5 ML CUP PO ×3 (05:55→21:53)
[2019-03-08] MEDS: PANTOPRAZOLE (EC) 40 MG TAB PO (05:55)
[2019-03-08] MEDS: MEROPENEM 500MG/50 ML (PMX) 50 ML IVPB (08:36)
[2019-03-08] MEDS: ASPIRIN (EC) 81 MG TAB PO (08:36)
[2019-03-08] MEDS: NICOTINE (14 MG/24 HR) PATCH TRANSDERM (08:37)
[2019-03-08] MEDS: METOPROLOL 25 MG TAB PO ×2 (08:37→21:53)
[2019-03-08] MEDS: METHYLNALTREXONE 12 MG/0.6 ML VIAL SC (09:38)
[2019-03-08 10:15] LABS: ADD MAN DIFF? NO
[2019-03-08 10:17] LABS: WHITE BLOOD COUNT 9.6 10^3/ul (4.8-10.8)
[2019-03-08 10:17] LABS: BASOPHIL # 0.1 10^3/ul (0.0-0.1); BASOPHILS % 0.5 % (0.0-2.0); EOSINOPHILS # 0.1 10^3/ul (0.0-0.5); HEMATOCRIT 36.7 % (42.0-52.0); HEMOGLOBIN 11.8 g/dl (14.0-18.0); LYMPHOCYTES # 1.4 10^3/ul (0.8-2.9); LYMPHOCYTES % 14.4 % (15.0-51.0); MEAN CORPUSCULAR HEMOGLOBIN 31.1 pg (29.0-33.0); MEAN CORPUSCULAR HGB CONC 32.2 g/dl (32.0-37.0); MEAN CORPUSCULAR VOLUME 96.6 fl (82.0-101.0); MEAN PLATELET VOLUME 11.1 fl (7.4-10.4); MONOCYTE # 0.8 10^3/ul (0.3-0.9); MONOCYTES % 8.5 % (0.0-11.0); NEUTROPHILS % 73.2 % (39.0-77.0); PLATELET COUNT 146 10^3/UL (140-415); RED CELL DISTRIBUTION WIDTH 13.3 % (11.5-14.5)
[2019-03-08 10:23] LABS: ANION GAP 7 (5-13); BLOOD UREA NITROGEN 12 mg/dl (7-20); CALCIUM 8.4 mg/dl (8.4-10.2); CARBON DIOXIDE 32 mmol/L (21-31); CHLORIDE 98 mmol/L (97-110); CREATININE 0.74 mg/dl (0.61-1.24); Estimated GFR > 60 mL/min (>60); GLUCOSE 156 mg/dl (70-220); POTASSIUM 4.3 mmol/L (3.5-5.1); SODIUM 137 mmol/L (135-144)
[2019-03-08] MEDS ORDERED: METHYLNALTREXONE 12 MG/0.6 ML VIAL SC (12:30)
[2019-03-08] MEDS: ALPRAZOLAM 1 MG TAB PO (19:11)
[2019-03-08] MEDS: LUBIPROSTONE 24 MCG CAP PO (21:52)
[2019-03-09] MEDS: HYDROmorphONE 2 MG/ML SYG IV ×5 (02:32→20:09)
[2019-03-09] MEDS: IPRATROPIUM (NEB) 0.5 MG/2.5 ML AMP HHN (05:15)
[2019-03-09] MEDS: PANTOPRAZOLE (EC) 40 MG TAB PO (05:36)
[2019-03-09] MEDS: NYSTATIN SUSP 5 ML CUP PO ×2 (05:36→13:55)
[2019-03-09 06:11] LABS: ADD MAN DIFF? NO
[2019-03-09 06:21] LABS: WHITE BLOOD COUNT 10.4 10^3/ul (4.8-10.8)
[2019-03-09 06:21] LABS: BASOPHIL # 0.1 10^3/ul (0.0-0.1); BASOPHILS % 0.5 % (0.0-2.0); EOSINOPHILS # 0.1 10^3/ul (0.0-0.5); EOSINOPHILS % 1.1 % (0.0-7.0); HEMATOCRIT 35.4 % (42.0-52.0); HEMOGLOBIN 11.6 g/dl (14.0-18.0); LYMPHOCYTES # 1.9 10^3/ul (0.8-2.9); LYMPHOCYTES % 18.6 % (15.0-51.0); MEAN CORPUSCULAR HEMOGLOBIN 30.7 pg (29.0-33.0); MEAN CORPUSCULAR HGB CONC 32.8 g/dl (32.0-37.0); MEAN CORPUSCULAR VOLUME 93.7 fl (82.0-101.0); MEAN PLATELET VOLUME 10.5 fl (7.4-10.4); MONOCYTE # 0.9 10^3/ul (0.3-0.9); MONOCYTES % 8.5 % (0.0-11.0); NEUTROPHIL # 7.1 10^3/ul (1.6-7.5); NEUTROPHILS % 68.4 % (39.0-77.0); PLATELET COUNT 150 10^3/UL (140-415); RED BLOOD COUNT 3.78 10^6/ul (4.70-6.10); RED CELL DISTRIBUTION WIDTH 13.2 % (11.5-14.5)
[2019-03-09] MEDS: ASPIRIN (EC) 81 MG TAB PO (08:44)
[2019-03-09] MEDS: LUBIPROSTONE 24 MCG CAP PO ×2 (08:44→20:08)
[2019-03-09] MEDS: NICOTINE (14 MG/24 HR) PATCH TRANSDERM (08:45)
[2019-03-09] MEDS: POLYETHYLENE GLYCOL 17 GM PACKET PO (08:45)
[2019-03-09] MEDS: METOPROLOL 25 MG TAB PO ×2 (08:46→20:09)
[2019-03-09] MEDS: ONDANSETRON 4 MG INJ IV (20:08)
[2019-03-09] MEDS: ALPRAZOLAM 1 MG TAB PO (22:34)
[2019-03-10] MEDS: IPRATROPIUM (NEB) 0.5 MG/2.5 ML AMP HHN (05:02)
[2019-03-10] MEDS: HYDROmorphONE 2 MG/ML SYG IV ×4 (05:24→16:35)
[2019-03-10] MEDS: PANTOPRAZOLE (EC) 40 MG TAB PO (05:24)
[2019-03-10] MEDS: LUBIPROSTONE 24 MCG CAP PO (08:28)
[2019-03-10] MEDS: METOPROLOL 25 MG TAB PO (08:29)
[2019-03-10] MEDS: NICOTINE (14 MG/24 HR) PATCH TRANSDERM (08:29)
[2019-03-10] MEDS: ASPIRIN (EC) 81 MG TAB PO (08:29)
[2019-03-10] MEDS: POLYETHYLENE GLYCOL 17 GM PACKET PO (08:33)
[2019-03-10] MEDS: ALPRAZOLAM 1 MG TAB PO (11:45)
[2019-03-10] MEDS: ONDANSETRON 4 MG INJ IV (11:47)
== END 2019-03-10 18:05 | disposition home health service (06) | DRG 872 ==
LOC: TEL 19:51 → 6WM 03-06 18:41 → ICU 03-04 14:55 → E/R 15:50
DX: A41.9 Sepsis, unspecified organism (principal); K56.52 Intestinal adhesions [bands] with complete obstruction; B37.0 Candidal stomatitis; E66.01 Morbid (severe) obesity due to excess calories; J44.9 Chronic obstructive pulmonary disease, unspecified; I10 Essential (primary) hypertension; F41.9 Anxiety disorder, unspecified; F32.9 Major depressive disorder, single episode, unspecified; F17.200 Nicotine dependence, unspecified, uncomplicated; K43.9 Ventral hernia without obstruction or gangrene; K40.20 Bilateral inguinal hernia, without obstruction or gangrene, not specified as recurrent; D64.9 Anemia, unspecified; R07.9 Chest pain, unspecified; M54.5 Low back pain; Z68.35 Body mass index [BMI] 35.0-35.9, adult; Z71.3 Dietary counseling and surveillance
CPT/HCPCS: 36415; 71045; 72131; 74018; 74176; 74250; 80048; 80053; 80202; 81003; 82565; 82962; 83605; 83690; 83735; 84145; 84484; 84520; 85025; 86703; 87040-91; 87081; 93005; 93306; 94640; 94664; 96374; 96375; 96376; 99285-25

== ENCOUNTER 2019-04-11 11:20 | Emergency (ER) | payer MEDICARE, BC ==
[2019-04-11] MEDS: morphine 4 MG/ML VIAL IV (11:45)
[2019-04-11 11:52] LABS: ADD MAN DIFF? NO
[2019-04-11 11:54] LABS: WHITE BLOOD COUNT 8.9 10^3/ul (4.8-10.8)
[2019-04-11 11:54] LABS: BASOPHIL # 0.1 10^3/ul (0.0-0.1); EOSINOPHILS # 0.3 10^3/ul (0.0-0.5); EOSINOPHILS % 3.2 % (0.0-7.0); HEMOGLOBIN 13.9 g/dl (14.0-18.0); LYMPHOCYTES # 2.8 10^3/ul (0.8-2.9); LYMPHOCYTES % 31.6 % (15.0-51.0); MEAN CORPUSCULAR HEMOGLOBIN 30.4 pg (29.0-33.0); MEAN CORPUSCULAR HGB CONC 33.1 g/dl (32.0-37.0); MEAN CORPUSCULAR VOLUME 91.9 fl (82.0-101.0); MEAN PLATELET VOLUME 10.5 fl (7.4-10.4); MONOCYTE # 0.7 10^3/ul (0.3-0.9); MONOCYTES % 7.6 % (0.0-11.0); NEUTROPHILS % 56.4 % (39.0-77.0); PLATELET COUNT 203 10^3/UL (140-415); RED BLOOD COUNT 4.57 10^6/ul (4.70-6.10); RED CELL DISTRIBUTION WIDTH 13.3 % (11.5-14.5)
[2019-04-11] MEDS: ONDANSETRON 4 MG INJ IV (12:11)
[2019-04-11] MEDS: SOD CHLORIDE 0.9% 1,000 ML IV (12:12)
[2019-04-11 12:15] LABS: ALANINE AMINOTRANSFERASE 17 IU/L (13-69); ALBUMIN 4.1 g/dl (3.3-4.9); ALBUMIN/GLOBULIN RATIO 1.28; ALKALINE PHOSPHATASE 117 IU/L (42-121); ANION GAP 11 (5-13); ASPARTATE AMINO TRANSFERASE 32 IU/L (15-46); BILIRUBIN,INDIRECT 0.6 mg/dl (0-1.1); BILIRUBIN,TOTAL 0.6 mg/dl (0.2-1.3); BLOOD UREA NITROGEN 7 mg/dl (7-20); CALCIUM 9.7 mg/dl (8.4-10.2); CARBON DIOXIDE 28 mmol/L (21-31); CHLORIDE 104 mmol/L (97-110); CREATININE 0.75 mg/dl (0.61-1.24); Estimated GFR > 60 mL/min (>60); GLUCOSE 101 mg/dl (70-220); LIPASE 44 U/L (23-300); POTASSIUM 4.3 mmol/L (3.5-5.1); SODIUM 143 mmol/L (135-144); TOTAL PROTEIN 7.3 g/dl (6.1-8.1)
== END 2019-04-11 13:23 | disposition home or self-care (01) ==
LOC: E/R 13:23
DX: K46.9 Unspecified abdominal hernia without obstruction or gangrene (principal); I10 Essential (primary) hypertension; J44.9 Chronic obstructive pulmonary disease, unspecified; F17.210 Nicotine dependence, cigarettes, uncomplicated; R40.2142 Coma scale, eyes open, spontaneous, at arrival to emergency department; R40.2362 Coma scale, best motor response, obeys commands, at arrival to emergency department; R40.2252 Coma scale, best verbal response, oriented, at arrival to emergency department; Z79.82 Long term (current) use of aspirin
CPT/HCPCS: 36415; 74176; 80053; 83690; 85025; 96374; 96375; 99285-25